=== PATIENT | female | born 1990 | race African-American/Black ===

== ENCOUNTER 2019-05-10 16:41 | Emergency (ER) | payer OTHER ==
[~2019-05-10] VITALS: Ht 154.9 cm; Wt 44.5 kg
--- NOTE | 2019-05-10 16:50 | NUR ---
PT BIBRA FROM HOME TO ER BED 13 FOR ANXIETY. STATES BEEN GOING ON X 1 MONTH AND TAKING ZANAX FOR IT. PT DENIES SI/HI. VSS. AWAITING MD MORRIS.
--- NOTE | 2019-05-10 17:08 | NUR ---
DR SAUCEDA AT BEDSIDE FOR EVAL.
[2019-05-10 18:36] VITALS: BP 122/77
--- NOTE | 2019-05-10 18:36 | NUR ---
Patient discharged to home in stable condition. Written and verbal after care instructions given. Patient verbalizes understanding of instruction.
== END 2019-05-10 18:37 | disposition home or self-care (01) ==
LOC: ER 16:48
DX: F41.9 Anxiety disorder, unspecified (principal)

== ENCOUNTER 2020-08-01 14:34 | Emergency (ER) | payer BC ==
[~2020-08-01] VITALS: Ht 154.9 cm; Wt 45.4 kg
[2020-08-01] MEDS ORDERED: ONDANSETRON HCL/PF 4 MG/2 ML VIAL IVP ONE (15:00)
[2020-08-01] MEDS ORDERED: IV NS 0.9% 1,000 ML BAG IV ONE (15:00)
[2020-08-01] MEDS ORDERED: ONDANSETRON HCL/PF 4 MG/2 ML VIAL ONE (15:06)
--- NOTE | 2020-08-01 15:26 | NUR ---
PATIENT CAME IN C/O NAUSEA AND VOMITING AT HOME. IV LINE STARTED IN THE RAC #18G. PATIENT KEPT COMFORTABLE WILL CONTINUE TO MONITOR.
[2020-08-01 15:30] LABS: BILIRUBIN,URINE SMALL (NEGATIVE); COLOR,URINE YELLOW (YELLOW); LEUKOCYTE ESTERASE ,URINE NEGATIVE (NEGATIVE); NITRITE, URINE NEGATIVE (NEGATIVE); PROTEIN,URINE 30 mg/dl (NEGATIVE); UGLUCOSE NEGATIVE (NEGATIVE); UROBILINOGEN,URINE 0.2 EU/dL (0.2)
[2020-08-01 15:40] LABS: BACTERIA,URINE 1+ /HPF (None Seen); MUCUS,URINE Few /LPF (None Seen)
[2020-08-01 15:50] LABS: BASOPHILS % (AUTO) 0.2 % (0.0-2.0); EOSINOPHILS % (AUTO) 1.2 % (0.0-6.0); HEMATOCRIT 43 % (33-45); HEMOGLOBIN 14.2 g/dL (11.5-14.8); LYMPHOCYTES % (AUTO) 11.9 % (20.0-44.0); MEAN CORPUSCULAR HGB CONC 33 g/dl (31.0-36.0); MEAN CORPUSCULAR VOLUME 81 fL (82-100); MONOCYTES # (AUTO) 0.3 /CMM (0.1-1.30); MONOCYTES % (AUTO) 3.9 % (2.0-12.0); NEUTROPHILS # (AUTO) 7.1 /CMM (1.8-8.9); NEUTROPHILS % (AUTO) 82.8 % (43.0-81.0); PLATELET COUNT (AUTO) 236 /CMM (150-450); RED BLOOD CELL COUNT(AUTO) 5.34 MIL/uL (4.0-5.2); WHITE BLOOD COUNT (AUTO) 8.6 K/uL (4.3-11.0)
[2020-08-01 16:28] LABS: CALCIUM, SERUM 9.5 mg/dL (8.5-10.1); CREATININE 0.5 mg/dL (0.6-1.3); POTASSIUM 3.9 mmol/L (3.5-5.1)
[2020-08-01 16:35] LABS: ALBUMIN 4.5 g/dL (3.4-5.0); BILIRUBIN,DIRECT 0.1 mg/dL (0.0-0.2); BILIRUBIN,TOTAL 0.4 mg/dL (0.2-1.0); TOTAL PROTEIN, SERUM 8.3 g/dL (6.4-8.2)
[2020-08-01] MEDS ORDERED: KETOROLAC TROMETHAMINE 15 MG/ML VIAL ONE (17:14)
[2020-08-01] MEDS ORDERED: METOCLOPRAMIDE HCL 10 MG/2 ML VIAL ONE (17:14)
[2020-08-01] MEDS ORDERED: IOHEXOL-300 100 ML VIAL IV ONE (17:16)
[2020-08-01] MEDS ORDERED: IV NS 0.9% 250 ML IV ONE (17:17)
--- NOTE | 2020-08-01 17:25 | NUR ---
Patient wheeled to ct
--- NOTE | 2020-08-01 17:29 | NUR ---
patient came back from ct
[2020-08-01] MEDS: METOCLOPRAMIDE HCL 10 MG/2 ML VIAL IV ONE (17:30)
[2020-08-01] MEDS: KETOROLAC TROMETHAMINE INJ 30 MG/ML VIAL IV ONE (17:30)
--- NOTE | 2020-08-01 18:03 | NUR ---
PER DR. SEQUEIRA CALLED [facility] HOTLINE [phone] MARCIA MADSEN TO CALL US BACK.
[2020-08-01] MEDS ORDERED: IBUP-1955 PO (18:18)
[2020-08-01 18:59] VITALS: BP 117/77
--- NOTE | 2020-08-01 18:59 | NUR ---
Patient discharged to home in stable condition. Written and verbal after care instructions given. Patient verbalizes understanding of instruction.IV removed. Catheter intact and site benign. Pressure and 4x4 applied to site. No bleeding noted.
== END 2020-08-01 18:59 | disposition home or self-care (01) ==
LOC: ER 14:34
DX: R10.84 Generalized abdominal pain (principal); D25.9 Leiomyoma of uterus, unspecified; R31.9 Hematuria, unspecified; R11.10 Vomiting, unspecified; F41.9 Anxiety disorder, unspecified; F32.9 Major depressive disorder, single episode, unspecified; Z79.899 Other long term (current) drug therapy
CPT/HCPCS: 36415; 74178; 76705; 76856; 80048; 80076; 80307; 81001; 83690; 84702; 85025; 96361; 96374; 96375; 99285; J1885; J2405; J2765; J7050; Q9967

== ENCOUNTER 2021-10-31 11:11 | Emergency (ER) | payer BC, OTHER ==
[~2021-10-31] VITALS: Ht 154.9 cm; Wt 48.1 kg
[~2021-10-31 11:11] MED LIST: IBUP-1955 PO
--- NOTE | 2021-10-31 11:18 | NUR ---
PATIENT A/O X4. BIB SELF C/O LOWER ABDOMINAL PAIN AND VOMITING SINCE YESTERDAY. AMBULATORY, ABLE TO MAKE NEEDS KNOWN. EVEN AND UNLABORED BREATHING. WILL CONTINUE TO MONITOR
[2021-10-31] MEDS ORDERED: ONDANSETRON HCL/PF 4 MG/2 ML VIAL IVP ONE (11:30)
[2021-10-31] MEDS ORDERED: IV NS 0.9% 1,000 ML BAG IV ONE (11:30)
--- NOTE | 2021-10-31 11:34 | NUR ---
URINE SPECIMEN COLLECTED AND SENT TO LAB.
[2021-10-31 11:55] LABS: BASOPHILS % (AUTO) 0.3 % (0.0-2.0); EOSINOPHILS % (AUTO) 1.5 % (0.0-6.0); HEMATOCRIT 41 % (33-45); HEMOGLOBIN 13.8 g/dL (11.5-14.8); LYMPHOCYTES # (AUTO) 1.7 K/uL (0.8-4.8); LYMPHOCYTES % (AUTO) 25.5 % (20.0-44.0); MEAN CORPUSCULAR HGB CONC 34 g/dl (31.0-36.0); MEAN CORPUSCULAR VOLUME 81 fL (82-100); MONOCYTES # (AUTO) 0.2 K/uL (0.1-1.30); MONOCYTES % (AUTO) 3.6 % (2.0-12.0); NEUTROPHILS # (AUTO) 4.7 K/uL (1.8-8.9); NEUTROPHILS % (AUTO) 69.1 % (43.0-81.0); PLATELET COUNT (AUTO) 173 K/uL (150-450); RED BLOOD CELL COUNT(AUTO) 4.99 MIL/uL (4.0-5.2); WHITE BLOOD COUNT (AUTO) 6.7 K/uL (4.3-11.0)
--- NOTE | 2021-10-31 11:55 | NUR ---
IV ACCESS ESTABLISHED R FA G#22, INTACT AND PATENT
[2021-10-31] MEDS ORDERED: ONDANSETRON HCL/PF 4 MG/2 ML VIAL ONE (12:08)
--- NOTE | 2021-10-31 12:10 | NUR ---
ADDENDUM: Intravenous End Time Documentation: Normal saline 1 liter (IV-WO) : start time: 1210 AM ; end time: 1310 AM : IV site:RFA PIV # 22 Port # 1
--- NOTE | 2021-10-31 12:13 | NUR ---
IVP ZOFRAN GIVEN FOR NAUSEA, Yvette Iverson#22.
[2021-10-31 12:16] LABS: BILIRUBIN,URINE NEGATIVE (NEGATIVE); COLOR,URINE YELLOW (YELLOW); LEUKOCYTE ESTERASE ,URINE NEGATIVE (NEGATIVE); NITRITE, URINE NEGATIVE (NEGATIVE); PROTEIN,URINE NEGATIVE (NEGATIVE); UGLUCOSE NEGATIVE (NEGATIVE); UROBILINOGEN,URINE 0.2 EU/dL (0.2)
[2021-10-31 12:18] LABS: ALBUMIN 3.8 g/dL (3.4-5.0); BILIRUBIN,DIRECT 0.1 mg/dL (0.0-0.2); BILIRUBIN,TOTAL 0.6 mg/dL (0.2-1.0); CALCIUM, SERUM 8.8 mg/dL (8.5-10.1); CREATININE 0.6 mg/dL (0.6-1.3); POTASSIUM 4.1 mmol/L (3.5-5.1); TOTAL PROTEIN, SERUM 7.2 g/dL (6.4-8.2)
[2021-10-31 12:30] LABS: BACTERIA,URINE Moderate /HPF (None Seen); RBC,URINE 0-2 /HPF (0-2); SQUAMOUS EPITHELIAL CELL,UR Moderate /HPF (None Seen); WBC,URINE 0-2 /HPF (0-3)
[2021-10-31] MEDS ORDERED: ONDA4TAB5 PO (15:01)
[2021-10-31] MEDS ORDERED: IBUP-1955 PO (15:01)
[2021-10-31] MEDS ORDERED: AMOX-430 PO (15:01)
--- NOTE | 2021-10-31 15:52 | NUR ---
IV removed. Catheter intact and site benign. Pressure and 4x4 applied to site. No bleeding noted. Patient discharged to home in stable condition. Written and verbal after care instructions given. Patient verbalizes understanding of instruction.
[2021-10-31 15:53] VITALS: BP 105/57
== END 2021-10-31 15:56 | disposition home or self-care (01) ==
LOC: ER 11:11
DX: N83.201 Unspecified ovarian cyst, right side (principal); K52.9 Noninfective gastroenteritis and colitis, unspecified; F41.9 Anxiety disorder, unspecified; F32.A Depression, unspecified
CPT/HCPCS: 36415; 74176; 76856; 80048; 80076; 81001; 83690; 84703; 85025; 85730; 87086; 96361; 96374; 99284; J2405; J7030